=== PATIENT | female | born 1940 | race Caucasian/White ===

== ENCOUNTER 2021-04-17 18:17 | Inpatient (IN) ==
[2021-04-17] MEDS ORDERED: Ondansetron 4 MG/2 ML VIAL IVP PRN (20:35)
[2021-04-17] MEDS ORDERED: Naloxone 0.4 MG/ML INJ IVP PRN (20:35)
[2021-04-17] MEDS ORDERED: Nitroglycerin 0.4 MG TAB.SUBL SL PRN (20:38)
[2021-04-17] MEDS ORDERED: *HR* Heparin 5,000 UNIT/ML VIAL IVP PRN ×2 (21:10)
[2021-04-17] MEDS ORDERED: Morphine Sulfate 2 MG/ML SYRINGE IVP PRN (21:12)
[2021-04-17] MEDS ORDERED: Heparin 25,000UNIT/250ML 1/2NS 25,000 UNIT/250 ML IV.SOLN IVC SCH (21:15)
[2021-04-17 22:51] LABS: INR 1.2; Prothrombin Time 13.4 Seconds (9.4-12.1)
[2021-04-17] MEDS ORDERED: *HR* Dextrose 50 % in Water (Syg) 50 ML SYRINGE IVP PRN (22:56)
[2021-04-17] MEDS ORDERED: D5% in Water 1,000 ML IVC PRN (22:56)
[2021-04-17] MEDS ORDERED: Dextrose 4 GM Chewable Tablets PO PRN ×2 (22:56)
[2021-04-18] MEDS: Insulin LISPRO 300 UNITS/3 ML VIAL SUBQ SCH ×4 (00:10→18:28)
[2021-04-18 02:24] LABS: Estimated Average Glucose 166 mg/dl; Hemoglobin A1C 7.4 %
[2021-04-18 02:33] LABS: Chol/HDL Ratio 2.6 (0-4.9)
[2021-04-18] MEDS ORDERED: Perflutren Lipid Microsphere 1.3 ML in 0.9 % Sodium Chloride 8.7 ML IVP PRN (08:45)
[2021-04-18] MEDS ORDERED: Aspirin 325 MG TABLET PO ONE (10:01)
[2021-04-18 10:16] LABS: Basophils % 0.6 %; Eosinophils # 0.1 K/mcL (0.0-0.6); Eosinophils % 1.9 %; Hematocrit 33.5 % (35.3-44.9); Hemoglobin 10.8 g/dL (11.5-15.4); Immature Granulocytes % 0.2 % (0-4); Lymphocytes # 2.3 K/mcL (0.6-4.6); Lymphocytes % 42.5 %; Mean Corpuscular HGB Conc 32.2 g/dL (31.6-35.5); Mean Corpuscular Hemoglobin 26.9 pg (28.0-33.3); Mean Corpuscular Volume 83.3 fL (83.0-100.0); Mean Platelet Volume 10.5 fL (9.4-12.4); Monocytes # 0.7 K/mcL (0.0-1.3); Monocytes % 12.6 %; Neutrophils # 2.3 K/mcL (1.6-8.9); Platelet Count 185 K/mcL (140-400); Red Blood Count 4.02 M/mcL (3.82-4.97); Red Cell Distribution Width 14.1 % (11.5-14.5); Segmented Neutrophils % 42.2 %; White Blood Count 5.4 K/mcL (4.3-11.1)
[2021-04-18 10:37] LABS: Calcium 9.5 mg/dL (8.6-10.3); Potassium 4.2 mEq/L (3.5-5.1)
[2021-04-18 10:45] LABS: Troponin I 2.5 ng/mL (< 0.04)
[2021-04-18] MEDS: carvediloL 6.25 MG TABLET PO SCH ×2 (13:28→20:08)
[2021-04-18] MEDS ORDERED: *HR* Heparin 10,000 UNIT/10 ML VIAL ONE (14:02)
[2021-04-18] MEDS ORDERED: Heparin 1,000 UNITS/500 mL 500 ML ONE (14:02)
[2021-04-18] MEDS ORDERED: 0.9 % Sodium Chloride 2,000 ML ONE (14:02)
[2021-04-18] MEDS ORDERED: Nitroglycerin 1,000 MCG/5 ML VIAL IV ONE (14:02)
[2021-04-18] MEDS ORDERED: ISOVUE-370 200 ML INFUS..BTL ONE (14:02)
[2021-04-18] MEDS ORDERED: *HR* Midazolam HCl 2 MG/2 ML VIAL ONE (14:16)
[2021-04-18] MEDS ORDERED: *HR* FentaNYL (PF) 100 MCG/2 ML VIAL ONE (14:16)
[2021-04-18] MEDS: *HR* Rivaroxaban 15 MG TABLET PO SCH (18:26)
[2021-04-18] MEDS: hydrALAZINE 25 MG TABLET PO SCH (20:11)
[2021-04-18] MEDS ORDERED: 0.9 % Sodium Chloride 1,000 ML ONE (23:14)
[2021-04-18] MEDS ORDERED: 0.9 % Sodium Chloride 500 ML IVC PRN (23:32)
[2021-04-18] MEDS ORDERED: Norepinephrine 4 MG/254 ML IV.SOLN IVC SCH (23:45)
[2021-04-18 23:49] LABS: Basophils % 0.6 %; Eosinophils # 0.1 K/mcL (0.0-0.6); Eosinophils % 2.1 %; Hematocrit 29.1 % (35.3-44.9); Hemoglobin 9.3 g/dL (11.5-15.4); Immature Granulocytes % 0.3 % (0-4); Lymphocytes # 3.2 K/mcL (0.6-4.6); Lymphocytes % 51.7 %; Mean Corpuscular Hemoglobin 27.4 pg (28.0-33.3); Mean Corpuscular Volume 85.6 fL (83.0-100.0); Mean Platelet Volume 9.2 fL (9.4-12.4); Monocytes # 0.7 K/mcL (0.0-1.3); Monocytes % 11.8 %; Neutrophils # 2.1 K/mcL (1.6-8.9); Platelet Count 149 K/mcL (140-400); Red Cell Distribution Width 14.2 % (11.5-14.5); Segmented Neutrophils % 33.5 %; White Blood Count 6.2 K/mcL (4.3-11.1)
[2021-04-19 00:02] LABS: Activated Partial Thrombo Time 41.1 Seconds (26.0-36.0)
[2021-04-19 00:04] LABS: INR 2.3; Prothrombin Time 25.8 Seconds (9.4-12.1)
[2021-04-19 00:13] LABS: Calcium 8.4 mg/dL (8.6-10.3); Magnesium 1.7 mg/dL (1.6-2.6); Potassium 3.7 mEq/L (3.5-5.1)
[2021-04-19 00:21] LABS: Troponin I 2.42 ng/mL (< 0.04)
[2021-04-19] MEDS ORDERED: Albumin 25% 25gram/100mL 25 GM/100 ML IV.SOLN IVPB ONE (00:29)
[2021-04-19 01:06] LABS: Basophils % 0.9 %; Eosinophils # 0.1 K/mcL (0.0-0.6); Hematocrit 29.2 % (35.3-44.9); Hemoglobin 9.3 g/dL (11.5-15.4); Immature Granulocytes % 0.2 % (0-4); Lymphocytes # 1.8 K/mcL (0.6-4.6); Lymphocytes % 41.7 %; Mean Corpuscular HGB Conc 31.8 g/dL (31.6-35.5); Mean Corpuscular Volume 84.6 fL (83.0-100.0); Monocytes # 0.6 K/mcL (0.0-1.3); Monocytes % 12.5 %; Neutrophils # 1.9 K/mcL (1.6-8.9); Platelet Count 136 K/mcL (140-400); Red Blood Count 3.45 M/mcL (3.82-4.97); Red Cell Distribution Width 14.1 % (11.5-14.5); Segmented Neutrophils % 42.7 %; White Blood Count 4.4 K/mcL (4.3-11.1)
[2021-04-19 01:16] LABS: Activated Partial Thrombo Time 36.2 Seconds (26.0-36.0)
[2021-04-19 01:22] LABS: BUN/Creatinine Ratio 23 (6-26); Blood Urea Nitrogen 34 mg/dL (8-23); eGFR For African Americans 41 (> 60); eGFR For Non-African Americans 34 (> 60)
[2021-04-19] MEDS ORDERED: Magnesium Sulfate 1 GM/102 ML PIGGYBACK IVPB ONE (02:09)
[2021-04-19] MEDS: Insulin LISPRO 300 UNITS/3 ML VIAL SUBQ SCH ×4 (02:35→17:37)
[2021-04-19 03:21] LABS: Troponin I 2.38 ng/mL (< 0.04)
[2021-04-19] MEDS: Aspirin 81 MG TAB.CHEW PO SCH (08:41)
[2021-04-19] MEDS: hydrALAZINE 25 MG TABLET PO SCH ×2 (08:42→09:27)
[2021-04-19] MEDS: carvediloL 6.25 MG TABLET PO SCH (08:47)
[2021-04-19] MEDS ORDERED: Ringers Solution, Lactated 1,000 ML IVC SCH (10:15)
[2021-04-19] MEDS: *HR* Rivaroxaban 15 MG TABLET PO SCH (17:37)
[2021-04-19] MEDS ORDERED: Insulin LISPRO 300 UNITS/3 ML VIAL SUBQ SCH (21:00)
[2021-04-20 08:52] LABS: Basophils % 0.6 %; Eosinophils # 0.1 K/mcL (0.0-0.6); Eosinophils % 2.2 %; Hematocrit 27.3 % (35.3-44.9); Hemoglobin 8.8 g/dL (11.5-15.4); Immature Granulocytes % 0.4 % (0-4); Lymphocytes # 1.4 K/mcL (0.6-4.6); Lymphocytes % 31.1 %; Mean Corpuscular HGB Conc 32.2 g/dL (31.6-35.5); Mean Corpuscular Hemoglobin 27.8 pg (28.0-33.3); Mean Corpuscular Volume 86.4 fL (83.0-100.0); Mean Platelet Volume 10.1 fL (9.4-12.4); Monocytes # 0.7 K/mcL (0.0-1.3); Monocytes % 14.3 %; Neutrophils # 2.4 K/mcL (1.6-8.9); Platelet Count 134 K/mcL (140-400); Red Blood Count 3.16 M/mcL (3.82-4.97); Red Cell Distribution Width 14.2 % (11.5-14.5); Segmented Neutrophils % 51.4 %; White Blood Count 4.6 K/mcL (4.3-11.1)
[2021-04-20] MEDS ORDERED: Pantoprazole 40 MG VIAL IVP SCH (09:00)
[2021-04-20 09:11] LABS: Calcium 8.9 mg/dL (8.6-10.3); Potassium 4.4 mEq/L (3.5-5.1)
[2021-04-20] MEDS: Insulin LISPRO 300 UNITS/3 ML VIAL SUBQ SCH ×2 (10:07→11:50)
[2021-04-20] MEDS: Aspirin 81 MG TAB.CHEW PO SCH (10:13)
[2021-04-20 10:27] VITALS: BP 167/56; PULSE 63; TEMP 97.8; O2SAT 96
== END 2021-04-20 14:27 | disposition home or self-care (01) | DRG 247 ==
LOC: 2NENU → SUATTDRO 20:02
PROVIDERS: ADMIT Hospitalist; ATTEND Student in an Organized Health Care Education/Training Program

== ENCOUNTER 2021-04-25 18:55 | Observation (INO) ==
[2021-04-25] MEDS ORDERED: *HR* HYDROcodone/Acet 5/325 mg TABLET PO PRN (22:30)
[2021-04-25] MEDS ORDERED: *HR* OxyCODONE Immed Rel 5 MG TABLET PO PRN (22:30)
[2021-04-25] MEDS ORDERED: 0.9 % Sodium Chloride 1,000 ML IVC SCH (22:30)
[2021-04-25] MEDS ORDERED: Naloxone 0.4 MG/ML INJ IVP PRN (22:30)
[2021-04-25] MEDS ORDERED: Acetaminophen 325 MG TABLET PO PRN (22:30)
[2021-04-25] MEDS ORDERED: Ondansetron ODT 4 MG TAB.RAPDIS SL PRN (22:30)
[2021-04-25] MEDS ORDERED: Melatonin 3 MG TABLET PO PRN (22:30)
[2021-04-25] MEDS ORDERED: *HR* Dextrose 50 % in Water (Syg) 50 ML SYRINGE IVP PRN (23:00)
[2021-04-25] MEDS ORDERED: Dextrose 4 GM Chewable Tablets PO PRN ×2 (23:00)
[2021-04-25] MEDS ORDERED: D5% in Water 1,000 ML IVC PRN (23:00)
[2021-04-25 23:21] LABS: Basophils % 0.8 %; Eosinophils # 0.1 K/mcL (0.0-0.6); Eosinophils % 2.6 %; Hematocrit 26.2 % (35.3-44.9); Hemoglobin 8.2 g/dL (11.5-15.4); Immature Granulocytes % 0.4 % (0-4); Lymphocytes % 39.1 %; Mean Corpuscular HGB Conc 31.3 g/dL (31.6-35.5); Mean Corpuscular Hemoglobin 27.2 pg (28.0-33.3); Mean Corpuscular Volume 86.8 fL (83.0-100.0); Mean Platelet Volume 9.6 fL (9.4-12.4); Monocytes # 0.7 K/mcL (0.0-1.3); Neutrophils # 2.2 K/mcL (1.6-8.9); Platelet Count 142 K/mcL (140-400); Red Blood Count 3.02 M/mcL (3.82-4.97); Red Cell Distribution Width 14.6 % (11.5-14.5); Segmented Neutrophils % 43.1 %; White Blood Count 5.1 K/mcL (4.3-11.1)
[2021-04-25 23:28] LABS: INR 1.3; Prothrombin Time 14.2 Seconds (9.4-12.1)
[2021-04-25 23:30] LABS: Activated Partial Thrombo Time 36.6 Seconds (26.0-36.0)
[2021-04-25 23:41] LABS: Calcium 8.9 mg/dL (8.6-10.3); Chol/HDL Ratio 2.9 (0-4.9); Magnesium 1.7 mg/dL (1.6-2.6); Potassium 3.7 mEq/L (3.5-5.1)
[2021-04-26] MEDS: D5% in 0.9% NACL 1,000 ML IVC SCH ×2 (01:02→17:27)
[2021-04-26] MEDS: Insulin LISPRO 300 UNITS/3 ML VIAL SUBQ SCH ×4 (01:08→18:15)
[2021-04-26 07:21] LABS: Hemoglobin 7.6 g/dL (11.5-15.4); Mean Corpuscular HGB Conc 31.7 g/dL (31.6-35.5); Mean Corpuscular Hemoglobin 27.2 pg (28.0-33.3); Mean Platelet Volume 9.8 fL (9.4-12.4); Platelet Count 134 K/mcL (140-400); Red Blood Count 2.79 M/mcL (3.82-4.97); Red Cell Distribution Width 14.7 % (11.5-14.5)
[2021-04-26 08:11] LABS: Albumin 3.4 g/dL (3.5-5.7); Albumin/Globulin Ratio 1.5 (1.1-2.2); Bilirubin,Total 0.5 mg/dL (0.3-1.0); Calcium 8.4 mg/dL (8.6-10.3); Globulin 2.2 g/dL (2.4-3.5); Potassium 3.6 mEq/L (3.5-5.1); Total Protein 5.6 g/dL (6.4-8.9)
[2021-04-26] MEDS: Aspirin Enteric Coated 81 MG Tablet PO SCH (10:10)
[2021-04-26] MEDS: Pantoprazole 40 MG VIAL IVP SCH ×2 (12:08→20:06)
[2021-04-26] MEDS ORDERED: Lidocaine -MPF 2% 5 ML VIAL ONE (12:46)
[2021-04-26] MEDS ORDERED: *HR* Propofol 200 MG/20 ML VIAL IVP ONE (12:47)
[2021-04-26] MEDS ORDERED: EPHEDrine 50 MG/ML VIAL ONE (13:35)
[2021-04-26] MEDS: hydrALAZINE 25 MG TABLET PO SCH ×2 (16:11→20:05)
[2021-04-26 16:33] LABS: Hemoglobin 7.8 g/dL (11.5-15.4)
[2021-04-26] MEDS ORDERED: SODIUM CHLORIDE/NAHCO3/KCL/PEG 4,000 ML SOLN.RECON PO ONE (17:00)
[2021-04-27] MEDS: Insulin LISPRO 300 UNITS/3 ML VIAL SUBQ SCH ×3 (03:41→12:51)
[2021-04-27 05:04] LABS: Basophils % 0.8 %; Eosinophils # 0.1 K/mcL (0.0-0.6); Eosinophils % 3.3 %; Hematocrit 27.1 % (35.3-44.9); Hemoglobin 8.3 g/dL (11.5-15.4); Immature Granulocytes % 0.5 % (0-4); Mean Corpuscular HGB Conc 30.6 g/dL (31.6-35.5); Mean Corpuscular Hemoglobin 26.9 pg (28.0-33.3); Mean Platelet Volume 10.2 fL (9.4-12.4); Monocytes # 0.6 K/mcL (0.0-1.3); Monocytes % 14.8 %; Neutrophils # 2.2 K/mcL (1.6-8.9); Platelet Count 142 K/mcL (140-400); Red Blood Count 3.08 M/mcL (3.82-4.97); Red Cell Distribution Width 14.9 % (11.5-14.5); Segmented Neutrophils % 55.6 %
[2021-04-27 05:24] LABS: BUN/Creatinine Ratio 17 (6-26); Blood Urea Nitrogen 17 mg/dL (8-23); Calcium 8.8 mg/dL (8.6-10.3); Carbon Dioxide 25 mEq/L (23-29); Chloride 108 mEq/L (98-107); Glucose 209 mg/dL (70-105); Osmolality,Calculated 298 (280-300); Potassium 3.7 mEq/L (3.5-5.1); Sodium 140 mEq/L (136-145); eGFR For African Americans > 60 (> 60); eGFR For Non-African Americans 51 (> 60)
[2021-04-27] MEDS: D5% in 0.9% NACL 1,000 ML IVC SCH (05:59)
[2021-04-27] MEDS ORDERED: *HR* Propofol 200 MG/20 ML VIAL IVP ONE (08:02)
[2021-04-27] MEDS ORDERED: Lidocaine -MPF 2% 5 ML VIAL ONE (08:02)
[2021-04-27] MEDS: hydrALAZINE 25 MG TABLET PO SCH (10:20)
[2021-04-27] MEDS: Pantoprazole 40 MG VIAL IVP SCH (10:21)
[2021-04-27] MEDS: Aspirin Enteric Coated 81 MG Tablet PO SCH (10:21)
[2021-04-27 12:22] VITALS: BP 104/44; PULSE 61; TEMP 97.1; O2SAT 97
== END 2021-04-27 15:46 | disposition home health service (06) ==
LOC: 3NENU → SUATTDRO 21:32
PROVIDERS: ADMIT Internal Medicine; ATTEND Internal Medicine

== ENCOUNTER 2021-06-16 02:28 | Observation (INO) ==
[2021-06-16] MEDS ORDERED: Acetaminophen 325 MG TABLET PO PRN (07:52)
[2021-06-16] MEDS ORDERED: Mag Hydrox/Al Hydrox/Simeth 30 ML UDC PO PRN (07:52)
[2021-06-16] MEDS ORDERED: Naloxone 0.4 MG/ML INJ IVP PRN (07:52)
[2021-06-16] MEDS ORDERED: Melatonin 3 MG TABLET PO PRN (07:52)
[2021-06-16] MEDS ORDERED: Ondansetron ODT 4 MG TAB.RAPDIS SL PRN (07:52)
[2021-06-16 08:51] LABS: Basophils % 0.4 %; Eosinophils % 0.6 %; Hematocrit 28.9 % (35.3-44.9); Immature Granulocytes % 0.2 % (0-4); Lymphocytes # 1.1 K/mcL (0.6-4.6); Lymphocytes % 20.5 %; Mean Corpuscular HGB Conc 31.1 g/dL (31.6-35.5); Mean Corpuscular Hemoglobin 27.2 pg (28.0-33.3); Mean Corpuscular Volume 87.3 fL (83.0-100.0); Mean Platelet Volume 9.9 fL (9.4-12.4); Monocytes # 0.6 K/mcL (0.0-1.3); Monocytes % 10.9 %; Neutrophils # 3.5 K/mcL (1.6-8.9); Platelet Count 152 K/mcL (140-400); Red Blood Count 3.31 M/mcL (3.82-4.97); Red Cell Distribution Width 13.7 % (11.5-14.5); Segmented Neutrophils % 67.4 %; White Blood Count 5.1 K/mcL (4.3-11.1)
[2021-06-16 08:58] LABS: INR 1.8; Prothrombin Time 19.9 Seconds (9.4-12.1)
[2021-06-16 09:08] LABS: Calcium 9.4 mg/dL (8.6-10.3); Potassium 4.3 mEq/L (3.5-5.1)
[2021-06-16 09:09] LABS: Chol/HDL Ratio 2.5 (0-4.9); Magnesium 1.8 mg/dL (1.6-2.6)
[2021-06-16] MEDS ORDERED: Dextrose 4 GM Chewable Tablets PO PRN ×2 (09:41)
[2021-06-16] MEDS ORDERED: *HR* Dextrose 50 % in Water (Syg) 50 ML SYRINGE IVP PRN (09:41)
[2021-06-16] MEDS ORDERED: D5% in Water 1,000 ML IVC PRN (09:41)
[2021-06-16] MEDS: Insulin LISPRO 300 UNITS/3 ML VIAL SUBQ SCH ×2 (11:05→16:54)
[2021-06-16] MEDS: hydrALAZINE 25 MG TABLET PO SCH ×2 (15:20→21:03)
[2021-06-16] MEDS ORDERED: *HR* Rivaroxaban 15 MG TABLET PO SCH (18:00)
[2021-06-17] MEDS: Insulin LISPRO 300 UNITS/3 ML VIAL SUBQ SCH (01:46)
[2021-06-17 03:52] LABS: Albumin 3.4 g/dL (3.5-5.7); Albumin/Globulin Ratio 1.5 (1.1-2.2); Bilirubin,Direct 0.2 mg/dL (0.0-0.2); Bilirubin,Indirect 0.4 mg/dL (0.0-1.0); Bilirubin,Total 0.6 mg/dL (0.3-1.0); Globulin 2.2 g/dL (2.4-3.5); Total Protein 5.6 g/dL (6.4-8.9)
[2021-06-17] MEDS ORDERED: Insulin LISPRO 300 UNITS/3 ML VIAL SUBQ SCH ×2 (07:30→21:00)
[2021-06-17] MEDS: hydrALAZINE 25 MG TABLET PO SCH (08:01)
[2021-06-17] MEDS ORDERED: hydroCHLOROthiazide 25 MG TABLET PO SCH (09:00)
[2021-06-17] MEDS ORDERED: lisinopriL 20 MG TABLET PO SCH (09:00)
[2021-06-17 10:24] VITALS: BP 109/56; PULSE 56; TEMP 97.7; O2SAT 95
== END 2021-06-17 12:03 | disposition home or self-care (01) ==
LOC: 3BNU
PROVIDERS: ADMIT Student in an Organized Health Care Education/Training Program; ATTEND Student in an Organized Health Care Education/Training Program